=== PATIENT | female | born 1970 | race Caucasian/White ===

== ENCOUNTER 2024-02-07 19:02 | Emergency (ER) | payer OTHER, SELFPAY ==
--- NOTE | ~2024-02-07 | XR_ITS ---
EXAMINATION: XR chest 1V portable Exam Date/Time: 02/07/2024 23:05 CDT HISTORY: dyspnea Comparison: None. RESULT: Lines, tubes, and devices: None. Lungs and pleura: Clear. Cardiomediastinal silhouette: Normal. Other: No acute osseous or upper abdominal finding. IMPRESSION: No acute cardiopulmonary process. Reviewed, dictated and finalized at location K.
--- NOTE | ~2024-02-07 | CT_ITS ---
EXAMINATION: CT abdomen pelvis w con DATE: 02/07/2024 23:33 INDICATION: Abdominal pain/bloating and groin pain TECHNIQUE: Computed tomography (CT) of the abdomen and pelvis was performed with 100 mL Omnipaque-350 intravenous contrast. Automated exposure control and iterative reconstruction technique were employe d. The dose-length product was 294.87 mGy-cm. COMPARISON: None. FINDINGS: Lower thorax: Left lower lobe scar. Liver: Normal. Biliary/Gallbladder: Gallbladder is normal. No bile duct dilation. Pancreas: 6 mm pancreatic head cyst. Spleen: Normal. Adrenals:No mass. Kidneys: No suspicious mass, obstructing stone, or hydronephrosis. GI tract: Moderate distal esophageal and gastric wall edema. No small or large bowel dilation. Normal appendix. Mesentery/Peritoneum: No ascites, mass, or free air. Retroperitoneum: No mass. Pelvis: Normal urinary bladder. Fibroid uterus. Dilated left pelvic veins. Multiple small simple ovar ministerio cyst/dominant follicles. Soft Tissues: Soft tissues and body wall unremarkable. Bones: No acute osseous finding. Severe right hip joint space narrowing, moderate osteophytosis, and significant subchondral cyst formation. IMPRESSION: Moderate esophagitis/gastritis. Dilated left pelvic veins, may represent pelvic congestion, correlate clinically for persistent dull pelvic pain lasting > 6 months, dysmenorrhea, dyspareunia, postcoital ache, and urinary symptoms. Severe left hip osteoarthritis. Reviewed, dictated and finalized at location K. IMPRESSION: Moderate esophagitis/gastritis. Dilated left pelvic veins, may represent pelvic congestion, correlate clinicall y for persistent dull pelvic pain lasting > 6 months, dysmenorrhea, dyspareunia , postcoital ache, and urinary symptoms. Severe left hip osteoarthritis.
[2024-02-07 19:23] VITALS: BP 121/63; PULSE 71; RESP 20; TEMP 36.6; O2SAT 100
[2024-02-07 21:24] LABS: Basophils Percent Auto 0.6 % (0.2-1.2); Eosinophils Absolute Auto 0.1 K/mm3 (0-0.3); Eosinophils Percent Auto 0.8 % (0-4.4); Hematocrit 35.9 % (37.0-47.0); Hemoglobin 11.7 g/dL (12.0-15.0); Immature Granulocyte Absolute 0.02 K/mm3 (0.00-0.031); Immature Granulocyte Percent A 0.3 % (0-0.5); Lymphocytes Absolute Auto 2.45 K/mm3 (0.9-3.2); Lymphocytes Percent Auto 34.3 % (18.3-44.2); Mean Corpuscular HGB Conc 32.6 g/dl (32-36); Mean Corpuscular Hemoglobin 30.2 pg (26-34); Mean Corpuscular Volume 92.8 fl (80-100); Mean Platelet Volume 8.9 fl (7.4-10.4); Monocytes Absolute Auto 0.5 K/mm3 (0.1-0.6); Monocytes Percent Auto 6.7 % (2.6-8.5); Neutrophils Absolute Auto 4.1 K/mm3 (1.3-6.7); Neutrophils Percent Auto 57.3 % (45.5-73.1); Platelet Count Result 266 k/mm3 (150-375); Red Blood Count 3.87 M/mm3 (4.2-5.4); White Blood Count 7.1 K/mm3 (4.5-10.0)
[2024-02-07 21:26] LABS: Appearance Urine Clear (Clear); Bilirubin Urine Negative (Negative); Blood Urine Negative (Negative); Color Urine Yellow (Yellow); Glucose Urine UA Negative (Negative); Ketones Urine Negative (Negative); Leukocyte Esterase Ur Negative LEU/UL (Negative); Nitrate Urine Negative (Negative); Protein Urine Negative (Negative); Specific Grav Ur 1.014 (1.001-1.035); Urobilinogen Urine 0.2 mg/dL (<2.0); pH Urine 6.5 (5.0-9.0)
[2024-02-07 21:27] LABS: Add Urine Microscopic? NO
[2024-02-07 21:34] LABS: Alanine Aminotransferase 13 U/L (6-35); Albumin Level 4.6 g/dL (3.5-5.1); Alkaline Phosphatase 78 U/L (38-126); Anion Gap 6 mmol/L (4-12); Aspartate Amino Transferase 21 U/L (14-36); Bilirubin,Total 0.8 mg/dL (0.2-1.3); Blood Urea Nitrogen 17 mg/dL (7-17); Calcium 9.5 mg/dL (8.4-10.2); Carbon Dioxide 27 mmol/L (22-30); Chloride 104 mmol/L (98-107); Estimated CRCL calculation 53 ml/min; Estimated Glomerular Filt Rate 52; Glucose 101 mg/dL (65-110); Lipase 116 U/L (23-300); Potassium 3.7 mmol/L (3.4-5.0); Sodium 137 mmol/L (137-145)
[2024-02-07] MEDS: KETOROLAC 15 MG/ML VIAL (*BKC) IV PUSH (23:18)
[2024-02-07] MEDS: ACETAMINOPHEN 500 MG TABLET 1000 MG PO (23:18)
[2024-02-07 23:22] LABS: Creatine Kinase 108 U/L (30-135)
--- NOTE | 2024-02-08 00:01 | ED.GENADULT ---
HPI - General Adult General Chief complaint: Abdominal Pain Stated complaint: left groin pain/hernia? Time Seen by Provider: 02/07/24 22:52 History of Present Illness HPI narrative: This is a 53-year-old female presenting with multiple complaints. The 1st and main complaint is groin pain. patient says she has been having groin pain for last 2-3 days. It is bilateral. It is worse with movement. It hurts to go downstairs. Patient cannot remember traumatic injury or onset. Patient also has multiple other complaints including rash on her torso. she has been treating with lotion and has been improving. Also has abdominal bloating. denies fevers chills chest pain, difficulty breathing Related Data Allergies Allergy/AdvReac Type Severity Reaction Status Date / Time azithromycin Allergy Nausea and Verified 02/07/24 21:12 Vomiting diazepam Allergy Anxiety Verified 02/07/24 21:11 morphine Allergy Anxiety Verified 02/07/24 21:11 Exam Narrative: APPEARANCE: No apparent distress. Head: atraumatic. EYES: EOMI, NOSE: Atraumatic NECK: Trachea midline RESPIRATORY: No increased rate of breathing Clear to auscultation CARDIOVASCULAR: RRR, ABDOMINAL: mild bloating but no guarding rebound or tenderness MUSCULOSKELETAl: no deformities, tenderness to palpation to the quadriceps muscles bilaterally NEURO: Alert. Moving 4/4 extremities SKIN:: no visible rash on the patient's torso PSYCHIATRIC: Normal affect Course Vital Signs Vital signs: Vital Signs Temperature 98 F 02/07/24 19:23 Pulse Rate 71 02/07/24 19:23 Respiratory Rate 20 02/07/24 19:23 Blood Pressure 121/63 02/07/24 19:23 Pulse Oximetry 100 02/07/24 19:23 Oxygen Delivery Room Air 02/07/24 19:23 Temperature 98 F 02/07/24 19:23 Pulse Rate 71 02/07/24 19:23 Respiratory Rate 20 02/07/24 19:23 Blood Pressure 121/63 02/07/24 19:23 Pulse Oximetry 100 02/07/24 19:23 Oxygen Delivery Room Air 02/07/24 19:23 Medical Decision Making MDM Narrative Medical decision making narrative: -Course: 53-year-old female presenting with multiple complaints. CT showed fibroid uterus, possibly pelvic congestion syndrome. Also showed severe arthritis of the left hip. This may explain patient's abdominal discomfort and groin pain. Patient treated with NSAIDs with improvement. Rest of her laboratory studies were unremarkable. vital signs stable. Results explained to the patient and she has a follow-up with her primary care physician and OBGYN. Patient given a list of PCPS in the area so she could establish care. 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 -Independent interpretation of studies: Labs reviewed within limits CT Abdomen/Pelvic Moderate esophagitis/gastritis. Dilated left pelvic veins, may represent pelvic congestion, correlate clinically for persistent dull pelvic pain lasting > 6 months, dysmenorrhea, dyspareunia, postcoital ache, and urinary symptoms. Severe left hip osteoarthritis. Pancreatic cyst chest x-ray negative -Interventions: Tylenol Toradol -Shared decision making / Disposition:discharged. Vital Signs Vital Signs: Vital Signs Temperature 98 F 02/07/24 19:23 Pulse Rate 71 02/07/24 19:23 Respiratory Rate 20 02/07/24 19:23 Blood Pressure 121/63 02/07/24 19:23 Pulse Oximetry 100 02/07/24 19:23 Oxygen Delivery Room Air 02/07/24 19:23 Temperature 98 F 02/07/24 19:23 Pulse Rate 71 02/07/24 19:23 Respiratory Rate 20 02/07/24 19:23 Blood Pressure 121/63 02/07/24 19:23 Pulse Oximetry 100 02/07/24 19:23 Oxygen Delivery Room Air 02/07/24 19:23 Lab Data 02/07/24 21:17 02/07/24 21:17 Labs: Lab Results 02/07/24 02/07/24 Range/Units 21:17 23:39 WBC 7.1
[2024-02-08 00:19] LABS: Influenza A QL RT-PCR Negative (Negative); Influenza B QL RT-PCR Negative (Negative); RSV RNA, RT-PCR Negative (Negative); SARS-CoV-2 RNA PCR Negative (Negative)
== END 2024-02-08 00:45 | disposition home or self-care (01) ==
PROVIDERS: Emergency Provider Emergency Medicine
DX: K86.2 Cyst of pancreas (principal); R14.0 Abdominal distension (gaseous); M16.12 Unilateral primary osteoarthritis, left hip; K20.90 Esophagitis, unspecified without bleeding; K29.70 Gastritis, unspecified, without bleeding
CPT/HCPCS: 36415; 71045; 74177; 80053; 81003; 81025; 82550; 83690; 85025; 87637; 96374; 99284; A9270; J1885; Q9967